=== PATIENT | male | born 2000 | race Caucasian/White ===

== ENCOUNTER 2024-02-03 20:10 | Emergency (ER) | payer BC ==
[~2024-02-03] VITALS: Ht 180.3 cm; Wt 83.6 kg
[2024-02-03 20:49] LABS: BASO # 0.01 K/mm3 (0.02-0.10); EOS # 0.17 K/mm3 (0.04-0.40); EOS % 3.3 % (0.0-4.0); HEMATOCRIT 46.4 % (42.0-52.0); HEMOGLOBIN 16.5 g/dL (13.5-18.0); LYMPH# 1.75 K/mm3 (1.50-4.00); MEAN CELL VOLUME 85 fl (78-100); MEAN CORPUSCULAR HEMOGLOBIN 30 pg (27-31); MEAN CORPUSCULAR HGB CONC 36 g/dL (33-37); MEAN PLATELET VOLUME 8.9 fl (7.4-10.4); MONO # 0.41 K/mm3 (0.20-0.80); NEU # 2.89 K/mm3 (1.40-6.50); PLATELET COUNT 282 K/mm3 (130-400); RED BLOOD COUNT 5.48 M/mm3 (4.20-5.60); RED CELL DISTRIBUTION WIDTH 11.8 % (11.5-14.5); WHITE BLOOD COUNT 5.2 K/mm3 (4.8-10.8)
[2024-02-03 20:58] LABS: ALBUMIN 4.5 g/dL (3.5-5.0)
[2024-02-03 21:00] LABS: CALCIUM 9.5 mg/dL (8.3-10.5)
[2024-02-03 21:01] LABS: TOTAL PROTEIN 7.5 g/dL (6.4-8.3)
[2024-02-03 21:03] LABS: TOTAL BILIRUBIN 0.4 mg/dL (0.2-1.2)
[2024-02-03 21:10] LABS: D-DIMER 0.25 mg/L FEU (0.15-0.50)
[2024-02-03 21:11] LABS: URINE WBC 0 /hpf (0-3)
[2024-02-03 21:13] LABS: URINE APPEARANCE CLEAR (CLEAR); URINE COLOR YELLOW (YELLOW)
[2024-02-03 21:14] LABS: URINE BILIRUBIN NEGATIVE (NEGATIVE); URINE BLOOD NEGATIVE (NEGATIVE); URINE GLUCOSE NEGATIVE (NEGATIVE); URINE KETONE NEGATIVE (NEGATIVE); URINE LEUKOCYTE ESTERASE NEGATIVE (NEGATIVE); URINE NITRATE NEGATIVE (NEGATIVE); URINE PROTEIN(semi-quant) NEGATIVE (NEGATIVE)
[2024-02-03 22:46] VITALS: BP 120/80
== END 2024-02-03 22:46 | disposition home or self-care (01) ==
LOC: ED 20:10
PROVIDERS: Family Medicine
DX: R07.89 Other chest pain (principal)